=== PATIENT | male | born 1980 | race Caucasian/White ===

== ENCOUNTER 2016-10-15 11:59 | Emergency (ER) | payer OTHER, BC ==
[~2016-10-15] VITALS: Ht 172.7 cm; Wt 88.8 kg
[~2016-10-15 11:59] MED LIST: ATARAX,VISTARIL25 MG PO; CARAFATE100 MG/ML PO; CHERATUSSIN AC473 ML PO; LEXAPRO20 MG PO; LIDOCAINE20 MG/1 M5 PO; PANTOPRAZOLE SO40 MG PO; PREDNISONE10 MG PO; PREDNISONE20 MG PO
[2016-10-15 12:46] LABS: HEMATOCRIT 45.5 % (38.0-50.0); MCH 30.9 PG (29.0-34.0); MCHC 34.5 G/DL (30.0-36.0); MCV 89.6 FL (86-99); MEAN PLAT.VOLUME 10.5 uM^3 (9.0-12.4); PLATELET COUNT 193 K/uL (156-360); RBC DIS.WIDTH-CV 14.4 % (11.8-14.6); RBC DIS.WIDTH-SD 46.1 % (39-53); RED BLOOD COUNT 5.08 M/uL (4.00-5.50)
[2016-10-15 12:57] LABS: CHLORIDE 109 mEq/L (99-109); POTASSIUM 4.4 mEq/L (3.7-5.4); SODIUM 141 mEq/L (136-147)
[2016-10-15 12:58] LABS: GLUCOSE 111 mg/dL (70-99)
[2016-10-15 13:00] LABS: ANION GAP 8 MEQ/L (2-14)
[2016-10-15 13:02] LABS: GFR ESTIMATE (CALCULATED) > 59 mL/min/
[2016-10-15 13:03] LABS: UREA NITROGEN (BUN) 18 mg/dL (9-23)
[2016-10-15 13:07] LABS: TROP-I INTERPRETATION NEGATIVE; TROPONIN-I < 0.01 ng/mL (0.0-0.30)
[2016-10-15] MEDS ORDERED: MOTRIN600 MG PO (14:37)
[2016-10-15 14:48] VITALS: BP 161/93
== END 2016-10-15 14:49 | disposition home or self-care (01) ==
LOC: EME 11:59 → RME 12:55
DX: R07.89 Other chest pain (principal)
CPT/HCPCS: 71020; 80048; 84484; 85027; 93005; 99281; 99284